=== PATIENT | female | born 1975 | race Caucasian/White ===

== ENCOUNTER 2017-06-09 21:48 | Emergency (ER) | payer OTHER ==
[~2017-06-09] VITALS: Ht 175.3 cm; Wt 92.6 kg
[~2017-06-09 21:48] MED LIST: ACETTAB3 OR; ACTIFED1 TAB PO; ADDERALL10 MG OR; ADDERALL10 MG PO; ADVIL200 MG OR; AMITRIPTYLIN25 MG PO; AMOXICILLIN/PO500 MG PO; AMOXICILLIN500 MG PO; ANTI-INFLAMMATORY PO; BENADRYL25 MG OR; BUTALBITAL/ACETAMIN1 PO; CIPRO500 MG OR; CLONAZEPAM1 MG PO; DARVOCET N-100100 - OR; DELESTROGEN40 MG/ML IM; DEPO-ESTRADIO5 MG/ML IM; DIPHEN/ATROP2.5 M1 PO; ELAVIL25 MG PO; ESTROGEN PATCH; FEMRING VA; FIORICET OR; FIORICET PO; FLEXERIL OR; FLEXERIL PO; HYDROCO/APAP1 TA9 PO; HYDROXYZ HCL25 MG PO; IMITREX25 MG PO; KLONOPIN1 MG OR; KLONOPIN1 MG PO; LORAZEPAM0.5 MG PO; LORTAB 10 OR; LORTAB 10 PO; LORTAB 1010 MG PO; LORTAB 5 OR; LORTAB 7.57.5 MG PO; LORTAB5 PO; MAXALT5 MG OR; MEDDOSEPAK PO; NAPROSYN500 MG PO; NAPROXEN375 MG OR; NEURONTIN100 MG PO; NORCO1 TAB PO; PENICILLN VK500 MG OR; PERCOCET 5/325M1 TAB OR; PERCOCET 5/325M1 TAB PO; PERCOCET1 TA2 OR; PREMARIN0.3 MG PO; PRILOSEC20 MG/CAP PO; PROMETHAZINE25 MG OR; PROMETHAZINE25 MG PO; RELPAX20 MG; ROBAXIN-750750 MG PO; SEROQUEL100 MG OR; TOPAMAX100 MG PO; TOPAMAX50 M1 OR; TRAMADOL HCL100 MG PO; TRAMADOL HCL50 MG PO; TRAZODONE100 MG OR; TRAZODONE150 MG OR; TRAZODONE150 MG PO; TRAZODONE50 MG PO; TYLENOL P1 OR; TYLENOL325 MG OR; ULTRAM50 M1 PO; ULTRAM50 MG OR; ULTRAM50 MG PO; ZOFRAN ODT4 MG PO; ZOLOFT100 MG; ZOLOFT100 MG OR; ZOLOFT100 MG PO; ZOLOFT50 MG PO; [UNRECOGNIZED DRUG - REMARK]
[2017-06-09 23:13] LABS: INFLUENZA A NONE DETECTED (NONE DETECT); INFLUENZA B NONE DETECTED (NONE DETECT)
[2017-06-09] MEDS ORDERED: CODEINE/GUAIFEN1 SOL PO (23:17)
[2017-06-09 23:30] VITALS: BP 125/82
== END 2017-06-09 23:40 | disposition home or self-care (01) | DRG 153 ==
LOC: ED 21:48
PROVIDERS: Emergency Medicine
DX: J32.9 Chronic sinusitis, unspecified (principal); F17.210 Nicotine dependence, cigarettes, uncomplicated; J40 Bronchitis, not specified as acute or chronic; R05 Cough; R07.81 Pleurodynia; M54.9 Dorsalgia, unspecified

== ENCOUNTER 2017-06-13 22:12 | Emergency (ER) | payer OTHER ==
[~2017-06-13 22:12] MED LIST changes: +CODEINE/GUAIFEN1 SOL PO
== END 2017-06-13 22:15 | disposition left against medical advice (07) | DRG 951 ==
LOC: ED 22:12 → LWOBS 22:15
DX: Z91.19 Patient's noncompliance with other medical treatment and regimen (principal)

== ENCOUNTER 2017-07-03 22:45 | Emergency (ER) | payer OTHER ==
[~2017-07-03] VITALS: Ht 175.3 cm; Wt 86.3 kg
[2017-07-03] MEDS ORDERED: XANAX1 MG PO (22:56)
[2017-07-03] MEDS ORDERED: LEVOTHYROXIN75 MC1 PO (22:56)
[2017-07-03] MEDS ORDERED: FIORICET PO (22:57)
[2017-07-03] MEDS ORDERED: SEROQUEL100 MG PO (22:57)
[2017-07-03] MEDS ORDERED: PROZAC10 MG PO (22:57)
[2017-07-03 23:49] VITALS: BP 127/86
== END 2017-07-03 23:59 | disposition home or self-care (01) | DRG 556 ==
LOC: ED 22:45
DX: M79.672 Pain in left foot (principal); E03.9 Hypothyroidism, unspecified; F17.210 Nicotine dependence, cigarettes, uncomplicated; W01.0XXA Fall on same level from slipping, tripping and stumbling without subsequent striking against object, initial encounter; Y92.009 Unspecified place in unspecified non-institutional (private) residence as the place of occurrence of the external cause

== ENCOUNTER 2019-03-29 13:23 | Emergency (ER) | payer OTHER ==
[~2019-03-29] VITALS: Ht 175.3 cm; Wt 100.0 kg
[~2019-03-29 13:23] MED LIST changes: +LEVOTHYROXIN75 MC1 PO; +PROZAC10 MG PO; +SEROQUEL100 MG PO; +XANAX1 MG PO
[2019-03-29 15:29] VITALS: BP 134/90
[2019-03-29] MEDS ORDERED: CEPHALEXIN500 M1 PO (15:36)
[2019-03-29 15:41] LABS: URINE BILIRUBIN - DIPSTICK NEGATIVE (NEGATIVE); URINE BLOOD DIPSTICK NEGATIVE (NEGATIVE); URINE COLOR YELLOW; URINE GLUCOSE - DIPSTICK NEGATIVE (NEGATIVE); URINE KETONE NEGATIVE (NEGATIVE); URINE LEUK ESTERASE NEGATIVE (NEGATIVE); URINE NITRITE - DIPSTICK NEGATIVE (Negative); URINE PROTEIN - DIPSTICK NEGATIVE (NEG-TRACE); URINE UROBILINOGEN - DIPSTICK 0.2 E.U./dL (0.2)
== END 2019-03-29 15:37 | disposition home or self-care (01) ==
LOC: ED 13:23
PROVIDERS: Family Medicine
DX: M54.5 Low back pain (principal); N39.0 Urinary tract infection, site not specified; E03.9 Hypothyroidism, unspecified; F17.210 Nicotine dependence, cigarettes, uncomplicated

== ENCOUNTER 2019-04-11 12:40 | Emergency (ER) | payer OTHER ==
[~2019-04-11] VITALS: Ht 175.3 cm; Wt 80.0 kg
[~2019-04-11 12:40] MED LIST changes: +CEPHALEXIN500 M1 PO
[2019-04-11] MEDS ORDERED: PREDNISONE50 MG PO (13:08)
[2019-04-11 14:15] VITALS: BP 142/75
== END 2019-04-11 14:18 | disposition home or self-care (01) ==
LOC: ED 12:40
DX: M54.5 Low back pain (principal); F17.200 Nicotine dependence, unspecified, uncomplicated

== ENCOUNTER 2019-06-13 | Emergency (ER) | payer OTHER ==
[~2019-06-13] MED LIST changes: +PREDNISONE50 MG PO
[2019-06-13 15:50] LABS: HEMATOCRIT 39.2 % (37.0-47.0); HEMOGLOBIN 12.8 g/dl (12.0-16.0); IMMATURE GRANULOCYTES 0.4 % (0.0-5.0); MEAN CELL VOLUME 98.7 fL CALC (80.0-100.0); MEAN CORPUSCULAR HGB 32.2 pG CALC (26.0-32.0); MEAN CORPUSCULAR HGB CONC 32.7 g/L CALC (32.0-36.0); NEUT# 5.61 thou/uL (2.00-7.15); RED BLOOD COUNT 3.97 mill/uL (4.20-5.60); RED CELL DISTRI WIDTH 13.2 % (11.5-15.5)
[2019-06-13 16:07] LABS: BUN 16 mg/dL (7-17); BUN/CREATININE RATIO 19 (12-20 (CALC)); CHLORIDE 102 mmol/l (95-108); CREATININE 0.8 mg/dL (0.5-1.0); GFR > 60 ML/MIN (>=60 (CALC)); GFR FOR AFR.AMER. > 60 ML/MIN (>=60 (CALC)); SODIUM 137 mmol/l (137-146)
[2019-06-13 16:13] LABS: ANION GAP 13 (6-22 (CALC)); CARBON DIOXIDE 26 mmol/l (22-30); POTASSIUM 3.7 mmol/l (3.5-5.1)
[2019-06-13] MEDS ORDERED: VOLTAREN1%GEL TOP (17:02)
[2019-06-13] MEDS ORDERED: CODEINE/GUAIFEN1 SOL PO (17:29)
== END 2019-06-13 17:17 | disposition home or self-care (01) ==
PROVIDERS: Family Medicine
DX: R07.89 Other chest pain (principal); F17.200 Nicotine dependence, unspecified, uncomplicated; E03.9 Hypothyroidism, unspecified

== ENCOUNTER 2019-06-18 | Emergency (ER) | payer OTHER ==
[~2019-06-18] MED LIST changes: +VOLTAREN1%GEL TOP
== END 2019-06-18 17:07 | disposition home or self-care (01) ==
DX: J10.1 Influenza due to other identified influenza virus with other respiratory manifestations (principal); E03.9 Hypothyroidism, unspecified; F17.210 Nicotine dependence, cigarettes, uncomplicated

== ENCOUNTER 2020-12-07 23:46 | Emergency (ER) | payer OTHER ==
[~2020-12-07] VITALS: Ht 175.3 cm; Wt 90.0 kg
[2020-12-08] MEDS ORDERED: AIMOVIG70 MG/ML IM (00:48)
[2020-12-08] MEDS ORDERED: INHALER (00:49)
[2020-12-08] MEDS ORDERED: MAXALT10 MG PO (00:49)
[2020-12-08] MEDS ORDERED: HYDROCO/APAP1 TA9 PO (01:47)
[2020-12-08] MEDS ORDERED: FLEXERIL5 M1 PO (01:47)
[2020-12-08 02:10] VITALS: BP 125/86
== END 2020-12-08 02:21 | disposition home or self-care (01) | DRG 552 ==
LOC: ED 23:46
DX: S16.1XXA Strain of muscle, fascia and tendon at neck level, initial encounter (principal); S39.012A Strain of muscle, fascia and tendon of lower back, initial encounter; M47.816 Spondylosis without myelopathy or radiculopathy, lumbar region; E03.9 Hypothyroidism, unspecified; F17.200 Nicotine dependence, unspecified, uncomplicated; V43.63XA Car passenger injured in collision with pick-up truck in traffic accident, initial encounter

== ENCOUNTER 2020-12-24 22:43 | Emergency (ER) | payer BC ==
[~2020-12-24] VITALS: Ht 175.3 cm; Wt 104.5 kg
[~2020-12-24 22:43] MED LIST changes: +AIMOVIG70 MG/ML IM; +FLEXERIL5 M1 PO; +INHALER; +MAXALT10 MG PO
[2020-12-25 00:08] LABS: HEMATOCRIT 39.4 % (37.0-47.0); HEMOGLOBIN 12.9 g/dl (12.0-16.0); IMMATURE GRANULOCYTES 0.1 % (0.0-5.0); MEAN CELL VOLUME 99.5 fL CALC (80.0-100.0); MEAN CORPUSCULAR HGB 32.6 pG CALC (26.0-32.0); MEAN CORPUSCULAR HGB CONC 32.7 g/dL CAL (32.0-36.0); NEUT# 5.28 thou/uL (2.00-7.15); RED BLOOD COUNT 3.96 mill/uL (4.20-5.60); RED CELL DISTRI WIDTH 13.6 % (11.5-15.5)
[2020-12-25 00:26] LABS: ALBUMIN 4.6 g/dL (3.2-5.0); ALKALINE PHOSPHATASE 77 u/l (38-126); ANION GAP 14 (6-22 (CALC)); BILIRUBIN, TOTAL 0.3 mg/dL (0.0-1.4); BUN 15 mg/dL (7-17); BUN/CREATININE RATIO 16 (12-20 (CALC)); CARBON DIOXIDE 25 mmol/l (22-30); CHLORIDE 101 mmol/l (95-108); CREATININE 0.9 mg/dL (0.5-1.0); GFR > 60 ML/MIN (>=60 (CALC)); GFR FOR AFR.AMER. > 60 ML/MIN (>=60 (CALC)); MAGNESIUM 2.1 mg/dL (1.6-2.3); SGOT/AST 43 u/l (14-36); SODIUM 136 mmol/l (137-146); TOTAL PROTEIN 8.1 g/dL (6.3-8.2)
[2020-12-25 00:28] LABS: D-DIMER 0.74 mg/L (0.19-0.60)
[2020-12-25 00:33] LABS: ACT PARTIAL THROMBO TIME 23.4 SECONDS (20.0-32.5); INTERNATIONAL NORMALIZED RATIO 0.9 RATIO (0.7-1.3); PROTHROMBIN TIME 9.8 SECONDS (9.0-12.5)
[2020-12-25 00:38] LABS: MYOGLOBIN 36 ng/mL (0 - 62)
[2020-12-25] MEDS ORDERED: BACLOFEN10 MG PO (01:33)
[2020-12-25] MEDS ORDERED: ALPRAZOLAM PO (01:34)
[2020-12-25 02:44] VITALS: BP 118/62
== END 2020-12-25 02:48 | disposition home or self-care (01) | DRG 153 ==
LOC: ED 22:43
PROVIDERS: Family Medicine
DX: J31.0 Chronic rhinitis (principal); R07.89 Other chest pain; E11.9 Type 2 diabetes mellitus without complications; E03.9 Hypothyroidism, unspecified; F17.210 Nicotine dependence, cigarettes, uncomplicated; I87.2 Venous insufficiency (chronic) (peripheral); Z20.822 Contact with and (suspected) exposure to COVID-19

== ENCOUNTER 2021-04-08 11:37 | Emergency (ER) | payer BC ==
[~2021-04-08] VITALS: Ht 175.3 cm; Wt 89.0 kg
[~2021-04-08 11:37] MED LIST changes: +ALPRAZOLAM PO; +BACLOFEN10 MG PO
[2021-04-08 13:38] VITALS: BP 173/79
== END 2021-04-08 13:38 | disposition home or self-care (01) | DRG 605 ==
LOC: ED 11:37
DX: S90.32XA Contusion of left foot, initial encounter (principal); E11.9 Type 2 diabetes mellitus without complications; E03.9 Hypothyroidism, unspecified; F17.200 Nicotine dependence, unspecified, uncomplicated; X50.0XXA Overexertion from strenuous movement or load, initial encounter; Y92.009 Unspecified place in unspecified non-institutional (private) residence as the place of occurrence of the external cause

== ENCOUNTER 2022-02-03 14:31 | Emergency (ER) | payer SELFPAY ==
[~2022-02-03] VITALS: Ht 175.3 cm; Wt 100.0 kg
[2022-02-03] VITALS (12 sets, daily range): BP systolic 65–142; BP diastolic 42–104
[2022-02-03 15:48] LABS: HEMATOCRIT 39.9 % (37.0-47.0); IMMATURE GRANULOCYTES 0.2 % (0.0-5.0); MEAN CELL VOLUME 103.1 fL CALC (80.0-100.0); MEAN CORPUSCULAR HGB 33.6 pG CALC (26.0-32.0); MEAN CORPUSCULAR HGB CONC 32.6 g/dL CAL (32.0-36.0); NEUT# 5.44 thou/uL (2.00-7.15); RED BLOOD COUNT 3.87 mill/uL (4.20-5.60); RED CELL DISTRI WIDTH 13.4 % (11.5-15.5)
[2022-02-03 16:05] LABS: ALBUMIN 5.1 g/dL (3.2-5.0); ALKALINE PHOSPHATASE 88 u/l (38-126); ANION GAP 15 (6-22 (CALC)); BILIRUBIN, TOTAL 0.3 mg/dL (0.0-1.4); BUN 19 mg/dL (7-17); BUN/CREATININE RATIO 20 (12-20 (CALC)); CARBON DIOXIDE 26 mmol/l (22-30); CHLORIDE 105 mmol/l (95-108); GFR FOR AFR.AMER. > 60 ML/MIN (>=60 (CALC)); GFR OTHER RACES 59 ML/MIN (>=60 (CALC)); LIPASE 137 u/l (23-300); POTASSIUM 4.3 mmol/l (3.5-5.1); SGOT/AST 31 u/l (14-36); SODIUM 142 mmol/l (137-146); TOTAL PROTEIN 8.8 g/dL (6.3-8.2)
[2022-02-03 16:09] LABS: INTERNATIONAL NORMALIZED RATIO 0.9 RATIO (0.7-1.3); PROTHROMBIN TIME 9.3 SECONDS (9.0-12.5)
[2022-02-03 16:17] LABS: MYOGLOBIN 31 ng/mL (0 - 62)
[2022-02-03] MEDS ORDERED: ZITHROMAX Z-PA250 MG PO (19:01)
== END 2022-02-03 19:25 | disposition left against medical advice (07) | DRG 313 ==
LOC: ED 14:31 → ED-I 16:49 → ED 19:25
PROVIDERS: Nurse Practitioner
DX: R07.9 Chest pain, unspecified (principal); J18.9 Pneumonia, unspecified organism; R60.9 Edema, unspecified; E11.9 Type 2 diabetes mellitus without complications; E03.9 Hypothyroidism, unspecified; Z91.19 Patient's noncompliance with other medical treatment and regimen
CPT/HCPCS: Q9967

== ENCOUNTER 2022-02-25 10:42 | Observation (INO) | payer SELFPAY ==
[~2022-02-25] VITALS: Ht 175.3 cm; Wt 91.0 kg
[~2022-02-25 10:42] MED LIST changes: +ZITHROMAX Z-PA250 MG PO
[2022-02-25 11:21] LABS: HEMATOCRIT 41.9 % (37.0-47.0); HEMOGLOBIN 14.3 g/dl (12.0-16.0); IMMATURE GRANULOCYTES 0.4 % (0.0-5.0); MEAN CELL VOLUME 99.1 fL CALC (80.0-100.0); MEAN CORPUSCULAR HGB 33.8 pG CALC (26.0-32.0); MEAN CORPUSCULAR HGB CONC 34.1 g/dL CAL (32.0-36.0); NEUT# 6.78 thou/uL (2.00-7.15); RED BLOOD COUNT 4.23 mill/uL (4.20-5.60); RED CELL DISTRI WIDTH 13.1 % (11.5-15.5)
[2022-02-25 11:49] LABS: INTERNATIONAL NORMALIZED RATIO 0.9 RATIO (0.7-1.3); PROTHROMBIN TIME 9.2 SECONDS (9.0-12.5)
[2022-02-25 11:54] LABS: ALBUMIN 4.9 g/dL (3.2-5.0); ALKALINE PHOSPHATASE 71 u/l (38-126); BUN 16 mg/dL (7-17); BUN/CREATININE RATIO 16 (12-20 (CALC)); CARBON DIOXIDE 26 mmol/l (22-30); CHLORIDE 98 mmol/l (95-108); GFR FOR AFR.AMER. > 60 ML/MIN (>=60 (CALC)); GFR OTHER RACES 59 ML/MIN (>=60 (CALC)); SGOT/AST 34 u/l (14-36); SODIUM 136 mmol/l (137-146)
[2022-02-25 11:57] LABS: ANION GAP 17 (6-22 (CALC)); POTASSIUM 4.9 mmol/l (3.5-5.1)
[2022-02-25 12:06] LABS: BILIRUBIN, TOTAL 0.6 mg/dL (0.0-1.4)
[2022-02-25] MEDS ORDERED: GABAPENTIN100 MG PO (12:35)
[2022-02-25] MEDS ORDERED: HYDROXYZ HCL25 MG PO (12:35)
[2022-02-25] MEDS ORDERED: LEVOTHYROXIN75 MCG PO (12:35)
[2022-02-25] MEDS ORDERED: CYMBALTA60 MG PO (12:36)
[2022-02-25] MEDS ORDERED: LASIX 20 MG TAB20 MG PO (12:36)
[2022-02-25] MEDS ORDERED: XANAX1 MG PO (12:36)
[2022-02-25] MEDS ORDERED: MAXALT10 MG PO (12:37)
[2022-02-25] MEDS ORDERED: POTASSIUM CHLO20 ME1 PO (12:37)
[2022-02-25 14:59] LABS: URINE BILIRUBIN - DIPSTICK NEGATIVE (NEGATIVE); URINE BLOOD DIPSTICK NEGATIVE (NEGATIVE); URINE COLOR YELLOW; URINE GLUCOSE - DIPSTICK NEGATIVE (NEGATIVE); URINE KETONE NEGATIVE (NEGATIVE); URINE LEUK ESTERASE NEGATIVE (NEGATIVE); URINE PROTEIN - DIPSTICK NEGATIVE (NEG-TRACE); URINE SPECIFIC GRAVITY <=1.005; URINE UROBILINOGEN - DIPSTICK 0.2 E.U./dL (0.2)
[2022-02-25 15:01] LABS: URINE NITRITE - DIPSTICK NEGATIVE (Negative)
[2022-02-25 15:50] VITALS: BP 116/71
[2022-02-25 16:00] VITALS: BP 116/71
[2022-02-25 19:15] VITALS: BP 107/66
[2022-02-25 20:00] VITALS: BP 107/66
[2022-02-25 23:49] VITALS: BP 107/63
[2022-02-26 04:00] VITALS: BP 103/61
[2022-02-26 04:28] VITALS: BP 103/61
[2022-02-26 07:09] VITALS: BP 116/77
[2022-02-26] MEDS ORDERED: METAXALONE800 M1 PO (10:40)
[2022-02-26] MEDS ORDERED: FIORICET 50-3001 CAP PO (11:53)
== END 2022-02-26 13:10 | disposition home or self-care (01) | DRG 103 ==
LOC: ED 10:42 → ED-I 12:50 → ED 13:11 → MS2 13:12
PROVIDERS: Family Medicine; ADMIT Internal Medicine; ATTEND Internal Medicine
DX: G43.909 Migraine, unspecified, not intractable, without status migrainosus (principal); R20.0 Anesthesia of skin; E11.9 Type 2 diabetes mellitus without complications; E03.9 Hypothyroidism, unspecified; J44.9 Chronic obstructive pulmonary disease, unspecified; F17.200 Nicotine dependence, unspecified, uncomplicated; E66.9 Obesity, unspecified; Z68.29 Body mass index [BMI] 29.0-29.9, adult; F40.240 Claustrophobia; Z20.822 Contact with and (suspected) exposure to COVID-19
CPT/HCPCS: G0378; Q3014; Q9967

== ENCOUNTER 2022-03-18 11:39 | Emergency (ER) | payer SELFPAY ==
[~2022-03-18] VITALS: Ht 175.3 cm; Wt 95.7 kg
[~2022-03-18 11:39] MED LIST changes: +CYMBALTA60 MG PO; +FIORICET 50-3001 CAP PO; +GABAPENTIN100 MG PO; +LASIX 20 MG TAB20 MG PO; +LEVOTHYROXIN75 MCG PO; +METAXALONE800 M1 PO; +POTASSIUM CHLO20 ME1 PO
[2022-03-18 11:46] VITALS: BP 143/75
[2022-03-18 12:01] VITALS: BP 120/83
[2022-03-18] MEDS ORDERED: HYDROCO/APAP1 TA9 PO (12:02)
[2022-03-18] MEDS ORDERED: ZOFRAN4 MG/TAB PO (12:02)
[2022-03-18] MEDS ORDERED: AMOX/K CLAV875 M1 PO (12:02)
[2022-03-18 12:11] VITALS: BP 143/75
== END 2022-03-18 12:21 | disposition home or self-care (01) | DRG 159 ==
LOC: ED 11:39
DX: K03.81 Cracked tooth (principal); E11.9 Type 2 diabetes mellitus without complications; E03.9 Hypothyroidism, unspecified; F17.200 Nicotine dependence, unspecified, uncomplicated

== ENCOUNTER 2022-04-04 13:28 | Emergency (ER) | payer SELFPAY ==
[~2022-04-04] VITALS: Ht 175.3 cm; Wt 91.0 kg
[~2022-04-04 13:28] MED LIST changes: +AMOX/K CLAV875 M1 PO; +ZOFRAN4 MG/TAB PO
[2022-04-04 13:51] VITALS: BP 126/69
[2022-04-04 14:00] VITALS: BP 104/58
[2022-04-04 14:30] VITALS: BP 107/64
[2022-04-04 15:01] VITALS: BP 111/66
[2022-04-04] MEDS ORDERED: HYDROCO/APAP1 TA9 PO (15:20)
[2022-04-04] MEDS ORDERED: VOLTAREN1%GEL TOP (15:29)
[2022-04-04 15:30] VITALS: BP 103/65
[2022-04-04 15:42] VITALS: BP 103/65
== END 2022-04-04 15:56 | disposition home or self-care (01) | DRG 556 ==
LOC: ED 13:28
DX: M25.561 Pain in right knee (principal); M25.571 Pain in right ankle and joints of right foot; W01.0XXA Fall on same level from slipping, tripping and stumbling without subsequent striking against object, initial encounter; Y92.009 Unspecified place in unspecified non-institutional (private) residence as the place of occurrence of the external cause

== ENCOUNTER 2022-05-07 22:45 | Emergency (ER) | payer SELFPAY ==
[~2022-05-07] VITALS: Ht 175.3 cm; Wt 90.0 kg
[2022-05-07] MEDS ORDERED: ATORVASTATIN CA20 MG PO (23:25)
[2022-05-07 23:54] LABS: URINE BILIRUBIN - DIPSTICK NEGATIVE (NEGATIVE); URINE BLOOD DIPSTICK NEGATIVE (NEGATIVE); URINE COLOR YELLOW; URINE GLUCOSE - DIPSTICK NEGATIVE (NEGATIVE); URINE KETONE NEGATIVE (NEGATIVE); URINE LEUK ESTERASE NEGATIVE (NEGATIVE); URINE PROTEIN - DIPSTICK NEGATIVE (NEG-TRACE); URINE SPECIFIC GRAVITY 1.015; URINE UROBILINOGEN - DIPSTICK 0.2 E.U./dL (0.2)
[2022-05-07 23:57] LABS: URINE NITRITE - DIPSTICK NEGATIVE (Negative)
[2022-05-08] MEDS ORDERED: LORTAB 5/3255 MG PO (02:06)
[2022-05-08] MEDS ORDERED: CYCLOBENZAPRINE10 MG PO (02:06)
[2022-05-08 02:16] VITALS: BP 118/78
== END 2022-05-08 02:16 | disposition home or self-care (01) | DRG 552 ==
LOC: ED 22:45
PROVIDERS: Emergency Medicine
DX: M54.50 Low back pain, unspecified (principal); G89.29 Other chronic pain

== ENCOUNTER 2022-10-26 04:26 | Emergency (ER) | payer SELFPAY ==
[~2022-10-26] VITALS: Ht 175.3 cm; Wt 95.0 kg
[~2022-10-26 04:26] MED LIST changes: +ATORVASTATIN CA20 MG PO; +CYCLOBENZAPRINE10 MG PO; +LORTAB 5/3255 MG PO
[2022-10-26] MEDS ORDERED: LORTAB 1010 MG PO (06:38)
[2022-10-26 07:00] VITALS: BP 148/89
== END 2022-10-26 07:00 | disposition home or self-care (01) | DRG 605 ==
LOC: ED 04:26
DX: S20.211A Contusion of right front wall of thorax, initial encounter (principal); E11.9 Type 2 diabetes mellitus without complications; E03.9 Hypothyroidism, unspecified; F17.200 Nicotine dependence, unspecified, uncomplicated; W01.0XXA Fall on same level from slipping, tripping and stumbling without subsequent striking against object, initial encounter; Y92.009 Unspecified place in unspecified non-institutional (private) residence as the place of occurrence of the external cause

== ENCOUNTER 2022-11-01 14:44 | Emergency (ER) | payer SELFPAY ==
[~2022-11-01] VITALS: Ht 175.3 cm; Wt 90.7 kg
[2022-11-01] MEDS ORDERED: LEVAQUIN750 M1 PO (16:56)
[2022-11-01 17:02] VITALS: BP 132/90
== END 2022-11-01 17:10 | disposition home or self-care (01) | DRG 103 ==
LOC: ED 14:44
DX: G43.909 Migraine, unspecified, not intractable, without status migrainosus (principal); J32.9 Chronic sinusitis, unspecified; E11.9 Type 2 diabetes mellitus without complications; E03.9 Hypothyroidism, unspecified; F17.200 Nicotine dependence, unspecified, uncomplicated

== ENCOUNTER 2022-11-04 15:09 | Emergency (ER) | payer SELFPAY ==
[2022-11-04] VITALS (7 sets, daily range): BP systolic 100–119; BP diastolic 59–75
[~2022-11-04] VITALS: Ht 175.3 cm; Wt 90.0 kg
[~2022-11-04 15:09] MED LIST changes: +LEVAQUIN750 M1 PO
== END 2022-11-04 17:00 | disposition home or self-care (01) | DRG 204 ==
LOC: ED 15:09
DX: R07.81 Pleurodynia (principal); E11.9 Type 2 diabetes mellitus without complications; E03.9 Hypothyroidism, unspecified; F17.200 Nicotine dependence, unspecified, uncomplicated

== ENCOUNTER 2022-11-17 18:02 | Inpatient (IN) | payer SELFPAY ==
[~2022-11-17] VITALS: Ht 170.2 cm; Wt 92.0 kg
[2022-11-17] VITALS (11 sets, daily range): BP systolic 115–189; BP diastolic 71–120
[2022-11-17 18:16] LABS: BASO% 0.1 % (0-3); EOS% 0.1 % (0-8); HEMATOCRIT 41.4 % (37.0-47.0); HEMOGLOBIN 13.7 g/dl (12.0-16.0); IMMATURE GRANULOCYTES 0.4 % (0.0-5.0); LYMPH% 12.8 % (15-41); MEAN CELL VOLUME 95.2 fL CALC (80.0-100.0); MEAN CORPUSCULAR HGB 31.5 pG CALC (26.0-32.0); MEAN CORPUSCULAR HGB CONC 33.1 g/dL CAL (32.0-36.0); MONO% 6.8 % (2-13); NEUT# 11.45 thou/uL (2.00-7.15); NEUT% 79.8 % (42-76); RED BLOOD COUNT 4.35 mill/uL (4.20-5.60)
[2022-11-17 18:33] LABS: ALKALINE PHOSPHATASE 94 u/l (38-126); BUN 31 mg/dL (7-17); BUN/CREATININE RATIO 41 (12-20 (CALC)); CHLORIDE 101 mmol/l (95-108); CREATININE 0.8 mg/dL (0.5-1.0); GFR FOR AFR.AMER. > 60 ML/MIN (>=60 (CALC)); GFR OTHER RACES > 60 ML/MIN (>=60 (CALC)); POTASSIUM 4.2 mmol/l (3.5-5.1); SGOT/AST 39 u/l (14-36); SODIUM 140 mmol/l (137-146)
[2022-11-17 18:34] LABS: PROTHROMBIN TIME 9.9 SECONDS (9.0-12.5)
[2022-11-17 18:41] LABS: ALBUMIN 5.1 g/dL (3.2-5.0); ANION GAP 19 (6-22 (CALC)); BILIRUBIN, TOTAL 0.5 mg/dL (0.02-1.3); CARBON DIOXIDE 24 mmol/l (22-30)
[2022-11-17 19:21] LABS: URINE BLOOD DIPSTICK SMALL (NEGATIVE); URINE GLUCOSE - DIPSTICK NEGATIVE (NEGATIVE); URINE KETONE 15 mg/dL (NEGATIVE); URINE LEUK ESTERASE NEGATIVE (NEGATIVE); URINE PH 5.5 (4.5-8.0); URINE PROTEIN - DIPSTICK >=300 mg/dL (NEG-TRACE); URINE SPECIFIC GRAVITY >=1.030; URINE UROBILINOGEN - DIPSTICK 0.2 E.U./dL (0.2)
[2022-11-17 19:23] LABS: URINE NITRITE - DIPSTICK NEGATIVE (Negative)
[2022-11-17 19:24] LABS: URINE COLOR DK. YELLOW
[2022-11-17 19:30] LABS: URINE SQUAMOUS EPITHELIAL CELL MANY EPI/hpf (0-FEW)
[2022-11-17 21:01] LABS: TSH, 3RD GENERATION 4.39 uIU/mL (0.47 - 4.68)
[2022-11-18 00:06] VITALS: BP 156/72
[2022-11-18 04:06] VITALS: BP 150/85
[2022-11-18 06:30] LABS: BASO% 0.3 % (0-3); HEMATOCRIT 44.2 % (37.0-47.0); HEMOGLOBIN 14.2 g/dl (12.0-16.0); IMMATURE GRANULOCYTES 1.1 % (0.0-5.0); LYMPH% 9.7 % (15-41); MEAN CELL VOLUME 98.4 fL CALC (80.0-100.0); MEAN CORPUSCULAR HGB 31.6 pG CALC (26.0-32.0); MEAN CORPUSCULAR HGB CONC 32.1 g/dL CAL (32.0-36.0); MONO% 5.6 % (2-13); NEUT# 11.96 thou/uL (2.00-7.15); NEUT% 83.3 % (42-76); RED BLOOD COUNT 4.49 mill/uL (4.20-5.60); RED CELL DISTRI WIDTH 14.1 % (11.5-15.5)
[2022-11-18 06:52] VITALS: BP 157/77
[2022-11-18 07:07] LABS: ALBUMIN 5.2 g/dL (3.2-5.0); ALKALINE PHOSPHATASE 77 u/l (38-126); ANION GAP 16 (6-22 (CALC)); BILIRUBIN, TOTAL 0.6 mg/dL (0.02-1.3); BUN 35 mg/dL (7-17); BUN/CREATININE RATIO 51 (12-20 (CALC)); CALCULATED LDLCHOLESTEROL 136 mg/dL (62-129 (CALC)); CARBON DIOXIDE 28 mmol/l (22-30); CHLORIDE 102 mmol/l (95-108); CREATININE 0.7 mg/dL (0.5-1.0); GFR FOR AFR.AMER. > 60 ML/MIN (>=60 (CALC)); GFR OTHER RACES > 60 ML/MIN (>=60 (CALC)); HDL CHOLESTEROL 46 mg/dL (39.0-59.0); POTASSIUM 4.5 mmol/l (3.5-5.1); SGOT/AST 42 u/l (14-36); SODIUM 142 mmol/l (137-146); TOTAL CHOLESTEROL 229 mg/dl (0-199); TOTAL TRIGLYCERIDES 238 mg/dl (0-149); VLDL CHOLESTROL 48 mg/dl (1-41 (CALC))
[2022-11-18 07:08] LABS: MAGNESIUM 2.8 mg/dL (1.6-2.3)
[2022-11-18 11:15] VITALS: BP 162/94
[2022-11-18 18:25] VITALS: BP 141/72
[2022-11-18 19:30] VITALS: BP 141/72
[2022-11-19 04:00] VITALS: BP 141/72
[2022-11-19 05:13] LABS: HEMATOCRIT 40.8 % (37.0-47.0); HEMOGLOBIN 12.7 g/dl (12.0-16.0); MEAN CORPUSCULAR HGB 32.1 pG CALC (26.0-32.0); MEAN CORPUSCULAR HGB CONC 31.1 g/dL CAL (32.0-36.0); RED BLOOD COUNT 3.96 mill/uL (4.20-5.60); RED CELL DISTRI WIDTH 14.2 % (11.5-15.5)
[2022-11-19 06:02] LABS: ALBUMIN 4.4 g/dL (3.2-5.0); ALKALINE PHOSPHATASE 78 u/l (38-126); BILIRUBIN, TOTAL 0.5 mg/dL (0.02-1.3); BUN 27 mg/dL (7-17); BUN/CREATININE RATIO 39 (12-20 (CALC)); CHLORIDE 105 mmol/l (95-108); CREATININE 0.7 mg/dL (0.5-1.0); GFR FOR AFR.AMER. > 60 ML/MIN (>=60 (CALC)); GFR OTHER RACES > 60 ML/MIN (>=60 (CALC)); MAGNESIUM 2.4 mg/dL (1.6-2.3); POTASSIUM 3.7 mmol/l (3.5-5.1); SGOT/AST 40 u/l (14-36); SODIUM 137 mmol/l (137-146)
[2022-11-19 06:04] LABS: ANION GAP 14 (6-22 (CALC)); CARBON DIOXIDE 22 mmol/l (22-30); TOTAL PROTEIN 7.1 g/dL (6.3-8.2)
[2022-11-19 07:00] VITALS: BP 138/84
[2022-11-19 18:55] VITALS: BP 170/80
[2022-11-19 19:00] VITALS: BP 170/80
[2022-11-20] VITALS (8 sets, daily range): BP systolic 154–179; BP diastolic 79–97
[2022-11-20 06:05] LABS: BASO% 0.5 % (0-3); EOS% 0.1 % (0-8); HEMATOCRIT 40.7 % (37.0-47.0); HEMOGLOBIN 13.4 g/dl (12.0-16.0); IMMATURE GRANULOCYTES 0.9 % (0.0-5.0); LYMPH% 22.1 % (15-41); MEAN CORPUSCULAR HGB 31.8 pG CALC (26.0-32.0); MEAN CORPUSCULAR HGB CONC 32.9 g/dL CAL (32.0-36.0); NEUT# 7.37 thou/uL (2.00-7.15); NEUT% 70.4 % (42-76); RED BLOOD COUNT 4.22 mill/uL (4.20-5.60); RED CELL DISTRI WIDTH 13.4 % (11.5-15.5)
[2022-11-20 06:11] LABS: ALBUMIN 4.4 g/dL (3.2-5.0); ALKALINE PHOSPHATASE 74 u/l (38-126); ANION GAP 16 (6-22 (CALC)); BILIRUBIN, TOTAL 0.6 mg/dL (0.02-1.3); BUN 23 mg/dL (7-17); BUN/CREATININE RATIO 37 (12-20 (CALC)); CARBON DIOXIDE 22 mmol/l (22-30); CHLORIDE 105 mmol/l (95-108); CREATININE 0.6 mg/dL (0.5-1.0); GFR FOR AFR.AMER. > 60 ML/MIN (>=60 (CALC)); GFR OTHER RACES > 60 ML/MIN (>=60 (CALC)); POTASSIUM 4.2 mmol/l (3.5-5.1); SGOT/AST 38 u/l (14-36); SODIUM 139 mmol/l (137-146); TOTAL PROTEIN 7.3 g/dL (6.3-8.2)
[2022-11-20 06:17] LABS: MEAN CELL VOLUME 96.4 fL CALC (80.0-100.0)
[2022-11-21] VITALS (7 sets, daily range): BP systolic 130–190; BP diastolic 83–95
[2022-11-21 05:25] LABS: BASO% 0.4 % (0-3); EOS% 0.2 % (0-8); HEMATOCRIT 41.9 % (37.0-47.0); HEMOGLOBIN 13.8 g/dl (12.0-16.0); IMMATURE GRANULOCYTES 0.6 % (0.0-5.0); LYMPH% 19.6 % (15-41); MEAN CELL VOLUME 95.7 fL CALC (80.0-100.0); MEAN CORPUSCULAR HGB 31.5 pG CALC (26.0-32.0); MEAN CORPUSCULAR HGB CONC 32.9 g/dL CAL (32.0-36.0); MONO% 6.1 % (2-13); NEUT# 9.57 thou/uL (2.00-7.15); NEUT% 73.1 % (42-76); RED BLOOD COUNT 4.38 mill/uL (4.20-5.60); RED CELL DISTRI WIDTH 13.1 % (11.5-15.5)
[2022-11-21 05:50] LABS: ALBUMIN 4.4 g/dL (3.2-5.0); ALKALINE PHOSPHATASE 77 u/l (38-126); ANION GAP 13 (6-22 (CALC)); BILIRUBIN, TOTAL 0.5 mg/dL (0.02-1.3); BUN 17 mg/dL (7-17); BUN/CREATININE RATIO 29 (12-20 (CALC)); CARBON DIOXIDE 23 mmol/l (22-30); CHLORIDE 107 mmol/l (95-108); CREATININE 0.6 mg/dL (0.5-1.0); GFR FOR AFR.AMER. > 60 ML/MIN (>=60 (CALC)); GFR OTHER RACES > 60 ML/MIN (>=60 (CALC)); POTASSIUM 3.5 mmol/l (3.5-5.1); SGOT/AST 34 u/l (14-36); SODIUM 139 mmol/l (137-146); TOTAL PROTEIN 7.2 g/dL (6.3-8.2)
== END 2022-11-21 15:35 | disposition short-term general hospital (02) | DRG 71 ==
LOC: ED 18:02 → MS2 20:23
PROVIDERS: Emergency Medicine; Internal Medicine; Nurse Practitioner; Nurse Practitioner Family; ADMIT Internal Medicine; ATTEND Internal Medicine
PROC: 009U3ZX Drainage of Spinal Canal, Percutaneous Approach, Diagnostic (ICD-10-PCS; principal; 2022-11-18)
PROC: B01BZZZ Fluoroscopy of Spinal Cord (ICD-10-PCS; 2022-11-18)
DX: G93.40 Encephalopathy, unspecified (principal); R44.3 Hallucinations, unspecified; E11.9 Type 2 diabetes mellitus without complications; E03.9 Hypothyroidism, unspecified; F41.9 Anxiety disorder, unspecified; F31.9 Bipolar disorder, unspecified; F12.10 Cannabis abuse, uncomplicated; E78.5 Hyperlipidemia, unspecified; I25.10 Atherosclerotic heart disease of native coronary artery without angina pectoris; M54.9 Dorsalgia, unspecified; G89.29 Other chronic pain; F17.200 Nicotine dependence, unspecified, uncomplicated; Z20.822 Contact with and (suspected) exposure to COVID-19
CPT/HCPCS: J1650; J2060; J3420

== ENCOUNTER 2022-11-26 10:40 | Emergency (ER) | payer SELFPAY ==
[2022-11-26] VITALS (7 sets, daily range): BP systolic 97–114; BP diastolic 59–81
[~2022-11-26] VITALS: Ht 170.2 cm; Wt 90.7 kg
== END 2022-11-26 13:24 | disposition home or self-care (01) | DRG 552 ==
LOC: ED 10:40
DX: M54.50 Low back pain, unspecified (principal); E11.42 Type 2 diabetes mellitus with diabetic polyneuropathy; E03.9 Hypothyroidism, unspecified; F17.200 Nicotine dependence, unspecified, uncomplicated

== ENCOUNTER 2022-11-30 15:11 | Emergency (ER) | payer SELFPAY ==
[~2022-11-30] VITALS: Ht 170.2 cm; Wt 91.0 kg
[2022-11-30 15:17] VITALS: BP 131/79
[2022-11-30 15:31] VITALS: BP 120/91
[2022-11-30 16:31] VITALS: BP 102/66
[2022-11-30] MEDS ORDERED: METHOCARBAMOL500 MG PO (16:43)
[2022-11-30] MEDS ORDERED: NAPROXEN500 MG PO (16:43)
[2022-11-30 16:55] VITALS: BP 102/66
== END 2022-11-30 17:05 | disposition home or self-care (01) | DRG 552 ==
LOC: ED 15:11
DX: M53.3 Sacrococcygeal disorders, not elsewhere classified (principal); G43.909 Migraine, unspecified, not intractable, without status migrainosus; E11.9 Type 2 diabetes mellitus without complications; E03.9 Hypothyroidism, unspecified; F17.210 Nicotine dependence, cigarettes, uncomplicated

== ENCOUNTER 2022-12-16 16:27 | Emergency (ER) | payer SELFPAY ==
[~2022-12-16] VITALS: Ht 170.2 cm; Wt 91.0 kg
[~2022-12-16 16:27] MED LIST changes: +METHOCARBAMOL500 MG PO; +NAPROXEN500 MG PO
[2022-12-16 16:52] LABS: BASO% 0.4 % (0-3); EOS% 1.3 % (0-8); HEMATOCRIT 43.4 % (37.0-47.0); HEMOGLOBIN 13.7 g/dl (12.0-16.0); IMMATURE GRANULOCYTES 0.1 % (0.0-5.0); LYMPH% 24.8 % (15-41); MEAN CELL VOLUME 99.8 fL CALC (80.0-100.0); MEAN CORPUSCULAR HGB 31.5 pG CALC (26.0-32.0); MEAN CORPUSCULAR HGB CONC 31.6 g/dL CAL (32.0-36.0); MONO% 6.1 % (2-13); NEUT# 5.1 thou/uL (2.00-7.15); NEUT% 67.3 % (42-76); RED BLOOD COUNT 4.35 mill/uL (4.20-5.60); RED CELL DISTRI WIDTH 13.3 % (11.5-15.5)
[2022-12-16 17:02] LABS: ALBUMIN 4.1 g/dL (3.2-5.0); ALKALINE PHOSPHATASE 111 u/l (38-126); ANION GAP 12 (6-22 (CALC)); BILIRUBIN, TOTAL 0.3 mg/dL (0.02-1.3); BUN 18 mg/dL (7-17); BUN/CREATININE RATIO 17 (12-20 (CALC)); CARBON DIOXIDE 29 mmol/l (22-30); CHLORIDE 103 mmol/l (95-108); GFR FOR AFR.AMER. > 60 ML/MIN (>=60 (CALC)); GFR OTHER RACES 59 ML/MIN (>=60 (CALC)); POTASSIUM 4.2 mmol/l (3.5-5.1); SGOT/AST 28 u/l (14-36); SODIUM 140 mmol/l (137-146); TOTAL PROTEIN 7.4 g/dL (6.3-8.2)
[2022-12-16 19:30] VITALS: BP 114/72
[2022-12-16 19:45] VITALS: BP 134/90
[2022-12-16 20:01] VITALS: BP 112/69
[2022-12-16] MEDS ORDERED: LORTAB 1010 MG PO ×2 (20:14→20:24)
[2022-12-16 20:15] VITALS: BP 115/77
[2022-12-16 20:34] VITALS: BP 115/77
== END 2022-12-16 20:34 | disposition home or self-care (01) | DRG 999 ==
LOC: ED 16:27
PROVIDERS: Family Medicine
DX: R07.9 Chest pain, unspecified (principal); S22.089A Unspecified fracture of T11-T12 vertebra, initial encounter for closed fracture; E11.9 Type 2 diabetes mellitus without complications; E03.9 Hypothyroidism, unspecified; F17.200 Nicotine dependence, unspecified, uncomplicated; W19.XXXA Unspecified fall, initial encounter

== ENCOUNTER 2022-12-21 04:31 | Emergency (ER) | payer SELFPAY ==
[~2022-12-21] VITALS: Ht 177.8 cm; Wt 90.0 kg
[2022-12-21] VITALS (7 sets, daily range): BP systolic 101–125; BP diastolic 40–71
[2022-12-21] MEDS ORDERED: OXYBUTYNIN CHLO10 MG PO (05:22)
[2022-12-21] MEDS ORDERED: METAXALONE800 M1 PO (05:25)
[2022-12-21] MEDS ORDERED: CYMBALTA60 MG PO (05:25)
[2022-12-21] MEDS ORDERED: NEURONTIN600 MG PO (05:26)
[2022-12-21] MEDS ORDERED: ONDANSETRON4 MG PO (05:27)
[2022-12-21] MEDS ORDERED: MAXALT10 MG PO (05:28)
[2022-12-21] MEDS ORDERED: ATORVASTATIN CA10 MG PO (05:28)
[2022-12-21] MEDS ORDERED: LORTAB 1010 MG PO (05:29)
[2022-12-22] MEDS ORDERED: MIRALAX17 GM PO (19:17)
== END 2022-12-21 07:00 | disposition home or self-care (01) | DRG 204 ==
LOC: ED 04:31
DX: R07.81 Pleurodynia (principal); R53.1 Weakness; S22.089D Unspecified fracture of T11-T12 vertebra, subsequent encounter for fracture with routine healing; E11.9 Type 2 diabetes mellitus without complications; E03.9 Hypothyroidism, unspecified; F17.200 Nicotine dependence, unspecified, uncomplicated; Z86.73 Personal history of transient ischemic attack (TIA), and cerebral infarction without residual deficits; Z91.81 History of falling; W19.XXXD Unspecified fall, subsequent encounter

== ENCOUNTER 2022-12-22 14:13 | Emergency (ER) | payer SELFPAY ==
[2022-12-22] VITALS (8 sets, daily range): BP systolic 113–118; BP diastolic 71–94
[~2022-12-22] VITALS: Ht 177.8 cm; Wt 95.0 kg
[~2022-12-22 14:13] MED LIST changes: +ATORVASTATIN CA10 MG PO; +NEURONTIN600 MG PO; +ONDANSETRON4 MG PO; +OXYBUTYNIN CHLO10 MG PO
[2022-12-22] MEDS ORDERED: MIRALAX17 GM PO (19:17)
== END 2022-12-22 19:22 | disposition home or self-care (01) | DRG 552 ==
LOC: ED 14:13
DX: M53.3 Sacrococcygeal disorders, not elsewhere classified (principal); K59.03 Drug induced constipation; T50.995A Adverse effect of other drugs, medicaments and biological substances, initial encounter; E11.9 Type 2 diabetes mellitus without complications; E03.9 Hypothyroidism, unspecified; F17.200 Nicotine dependence, unspecified, uncomplicated; Z91.199 Patient's noncompliance with other medical treatment and regimen due to unspecified reason; Z86.73 Personal history of transient ischemic attack (TIA), and cerebral infarction without residual deficits; Z91.81 History of falling

== ENCOUNTER 2023-01-05 15:51 | Emergency (ER) | payer SELFPAY ==
[2023-01-05] VITALS (8 sets, daily range): BP systolic 102–124; BP diastolic 63–78
[~2023-01-05] VITALS: Ht 177.8 cm; Wt 95.2 kg
[~2023-01-05 15:51] MED LIST changes: +MIRALAX17 GM PO
[2023-01-05] MEDS ORDERED: HYDROCO/APAP1 TA9 PO (18:07)
== END 2023-01-05 18:40 | disposition home or self-care (01) | DRG 552 ==
LOC: ED 15:51
DX: M54.50 Low back pain, unspecified (principal); E11.9 Type 2 diabetes mellitus without complications; E03.9 Hypothyroidism, unspecified; F17.200 Nicotine dependence, unspecified, uncomplicated; Z86.73 Personal history of transient ischemic attack (TIA), and cerebral infarction without residual deficits

== ENCOUNTER 2023-01-14 23:39 | Emergency (ER) | payer SELFPAY ==
[~2023-01-14] VITALS: Ht 177.8 cm; Wt 99.0 kg
[2023-01-14 23:55] VITALS: BP 137/71
[2023-01-15 00:01] VITALS: BP 120/69
[2023-01-15 00:16] VITALS: BP 108/70
[2023-01-15 00:30] VITALS: BP 117/68
[2023-01-15 00:45] VITALS: BP 108/70
[2023-01-15 00:53] VITALS: BP 108/70
== END 2023-01-15 01:04 | disposition home or self-care (01) | DRG 552 ==
LOC: ED 23:39
DX: M54.6 Pain in thoracic spine (principal); M54.50 Low back pain, unspecified; E11.9 Type 2 diabetes mellitus without complications; E03.9 Hypothyroidism, unspecified; F17.200 Nicotine dependence, unspecified, uncomplicated; Z86.73 Personal history of transient ischemic attack (TIA), and cerebral infarction without residual deficits

== ENCOUNTER 2023-02-01 10:06 | Emergency (ER) | payer OTHER ==
[~2023-02-01] VITALS: Ht 177.8 cm; Wt 90.0 kg
[2023-02-01] VITALS (8 sets, daily range): BP systolic 105–125; BP diastolic 66–86
[2023-02-01] MEDS ORDERED: METHOCARBAMOL500 MG PO (12:26)
[2023-02-01] MEDS ORDERED: MEDDOSEPAK PO (12:26)
[2023-02-02] MEDS ORDERED: METHOCARBAMOL500 MG PO (00:12)
== END 2023-02-01 13:01 | disposition home or self-care (01) | DRG 552 ==
LOC: ED 10:06
DX: M54.50 Low back pain, unspecified (principal); G89.29 Other chronic pain; E11.9 Type 2 diabetes mellitus without complications; E03.9 Hypothyroidism, unspecified; I10 Essential (primary) hypertension; F41.9 Anxiety disorder, unspecified; F17.200 Nicotine dependence, unspecified, uncomplicated; Z86.73 Personal history of transient ischemic attack (TIA), and cerebral infarction without residual deficits; Z91.81 History of falling; M54.9 Dorsalgia, unspecified
CPT/HCPCS: J1100; J2060

== ENCOUNTER 2023-02-01 22:10 | Emergency (ER) | payer OTHER ==
[~2023-02-01] VITALS: Ht 177.8 cm; Wt 90.0 kg
[2023-02-02] MEDS ORDERED: METHOCARBAMOL500 MG PO (00:12)
[2023-02-02 00:40] VITALS: BP 130/89
== END 2023-02-02 00:40 | disposition home or self-care (01) | DRG 552 ==
LOC: ED 22:10
DX: M54.50 Low back pain, unspecified (principal); E11.9 Type 2 diabetes mellitus without complications; E03.9 Hypothyroidism, unspecified; F17.200 Nicotine dependence, unspecified, uncomplicated; Z86.73 Personal history of transient ischemic attack (TIA), and cerebral infarction without residual deficits; Z91.81 History of falling
CPT/HCPCS: J1100; J2060

== ENCOUNTER 2023-02-16 03:23 | Emergency (ER) | payer OTHER ==
[~2023-02-16] VITALS: Ht 177.8 cm; Wt 100.0 kg
[2023-02-16 03:46] VITALS: BP 106/65
[2023-02-16 04:00] VITALS: BP 118/80
[2023-02-16 04:15] VITALS: BP 101/72
[2023-02-16 04:38] VITALS: BP 101/72
== END 2023-02-16 04:21 | disposition home or self-care (01) | DRG 605 ==
LOC: ED 03:23
DX: S40.011A Contusion of right shoulder, initial encounter (principal); S60.221A Contusion of right hand, initial encounter; E11.9 Type 2 diabetes mellitus without complications; E03.9 Hypothyroidism, unspecified; M54.9 Dorsalgia, unspecified; M54.2 Cervicalgia; G89.29 Other chronic pain; F17.200 Nicotine dependence, unspecified, uncomplicated; W18.11XA Fall from or off toilet without subsequent striking against object, initial encounter; Z86.73 Personal history of transient ischemic attack (TIA), and cerebral infarction without residual deficits

== ENCOUNTER 2023-07-04 23:42 | Emergency (ER) | payer OTHER ==
[~2023-07-04 23:42] MED LIST changes: +HYDROCODONE POLISTIR PO; +METAMUCIL58.6 % PO; +PREDNISONE20 MG PO; +PROVENTIL HFA108 MCG PO; +VENTOLIN HFA108 MCG IN
== END 2023-07-05 00:25 | disposition left against medical advice (07) | DRG 951 ==
LOC: ED 23:42 → LWOBS 07-05 00:25
DX: Z53.21 Procedure and treatment not carried out due to patient leaving prior to being seen by health care provider (principal)

== ENCOUNTER 2023-07-07 04:14 | Emergency (ER) | payer OTHER | END 2023-07-07 04:18 | disposition left against medical advice (07) | DRG 951 | LOC: ED 04:14 → LWOBS 04:18 | DX: Z53.21 Procedure and treatment not carried out due to patient leaving prior to being seen by health care provider (principal) ==

== ENCOUNTER 2023-07-10 07:10 | Emergency (ER) | payer OTHER ==
[~2023-07-10] VITALS: Ht 177.8 cm; Wt 86.0 kg
[2023-07-10] VITALS (7 sets, daily range): BP systolic 110–127; BP diastolic 65–77
[2023-07-10] MEDS ORDERED: AMOX/K CLAV875 M1 PO (08:28)
== END 2023-07-10 10:10 | disposition home or self-care (01) | DRG 159 ==
LOC: ED 07:10
DX: K08.89 Other specified disorders of teeth and supporting structures (principal); M25.572 Pain in left ankle and joints of left foot; G43.909 Migraine, unspecified, not intractable, without status migrainosus; E03.9 Hypothyroidism, unspecified; F17.200 Nicotine dependence, unspecified, uncomplicated; Z86.73 Personal history of transient ischemic attack (TIA), and cerebral infarction without residual deficits

== ENCOUNTER 2023-08-01 15:29 | Emergency (ER) | payer OTHER ==
[~2023-08-01] VITALS: Ht 177.8 cm; Wt 88.0 kg
[2023-08-01 15:53] VITALS: BP 141/88
[2023-08-01 16:00] VITALS: BP 146/80
[2023-08-01] MEDS ORDERED: PHENAZOPYRIDINE HCL 100 MG/TAB PO ONE (16:05)
[2023-08-01 16:13] LABS: URINE BILIRUBIN - DIPSTICK Negative (NEGATIVE); URINE BLOOD DIPSTICK Negative (NEGATIVE); URINE GLUCOSE - DIPSTICK Negative (NEGATIVE); URINE KETONE Negative (NEGATIVE); URINE LEUK ESTERASE Negative (NEGATIVE); URINE NITRITE - DIPSTICK Negative (Negative); URINE PROTEIN - DIPSTICK Negative (NEG-TRACE); URINE UROBILINOGEN - DIPSTICK 0.2 E.U./dL (0.2)
[2023-08-01 16:14] LABS: URINE COLOR Yellow
[2023-08-01 16:31] VITALS: BP 115/70
[2023-08-01 17:00] VITALS: BP 138/95
[2023-08-01] MEDS ORDERED: PYRIDIUM200 MG PO (19:17)
[2023-08-01 19:19] VITALS: BP 138/95
== END 2023-08-01 19:27 | disposition home or self-care (01) | DRG 696 ==
LOC: ED 15:29
PROVIDERS: Family Medicine
DX: R30.0 Dysuria (principal); G43.909 Migraine, unspecified, not intractable, without status migrainosus; Z76.5 Malingerer [conscious simulation]; E11.9 Type 2 diabetes mellitus without complications; E03.9 Hypothyroidism, unspecified; Z87.442 Personal history of urinary calculi; F17.200 Nicotine dependence, unspecified, uncomplicated

== ENCOUNTER 2023-12-12 09:47 | Emergency (ER) | payer OTHER ==
[~2023-12-12] VITALS: Ht 177.8 cm; Wt 90.0 kg
[2023-12-12] VITALS (10 sets, daily range): BP systolic 130–149; BP diastolic 73–112
[~2023-12-12 09:47] MED LIST changes: +ASPIRIN 81 LOW81 MG PO; +CLEOCIN300 MG PO; +LEVOTHYROXIN88 MC1 PO; +PENICILLN VK500 MG PO; +PERCOCET 5/321 COMBO PO; +PYRIDIUM200 MG PO
[2023-12-12 10:21] LABS: BASO% 0.4 % (0-3); EOS% 2.6 % (0-8); HEMATOCRIT 43.4 % (37.0-47.0); HEMOGLOBIN 13.8 g/dl (12.0-16.0); IMMATURE GRANULOCYTES 0.4 % (0.0-5.0); LYMPH% 30.8 % (15-41); MEAN CELL VOLUME 99.1 fL CALC (80.0-100.0); MEAN CORPUSCULAR HGB 31.5 pG CALC (26.0-32.0); MEAN CORPUSCULAR HGB CONC 31.8 g/dL CAL (32.0-36.0); NEUT# 4.22 thou/uL (2.00-7.15); NEUT% 59.8 % (42-76); RED BLOOD COUNT 4.38 mill/uL (4.20-5.60); RED CELL DISTRI WIDTH 12.9 % (11.5-15.5)
[2023-12-12] MEDS ORDERED: DEXAMETHASONE SOD. PHOSPHATE 10 MG/ML VIAL IV ONE (10:35)
[2023-12-12] MEDS ORDERED: DiphenhydrAMINE HCL 50 MG/ML SDV IV ONE (10:35)
[2023-12-12] MEDS ORDERED: SODIUM CHLORIDE 0.9% 1,000 ML IV ONE (10:35)
[2023-12-12] MEDS ORDERED: METOCLOPRAMIDE HCL 10 MG/2 ML SDV IV ONE (10:35)
[2023-12-12 10:40] LABS: ALBUMIN 4.7 g/dL (3.2-5.0); BILIRUBIN, TOTAL 0.4 mg/dL (0.02-1.3); CREATININE 0.9 mg/dL (0.5-1.0); POTASSIUM 4.4 mmol/l (3.5-5.1); TOTAL PROTEIN 8.1 g/dL (6.3-8.2)
== END 2023-12-12 12:39 | disposition home or self-care (01) | DRG 103 ==
LOC: ED 09:47
PROVIDERS: Family Medicine
DX: G43.909 Migraine, unspecified, not intractable, without status migrainosus (principal); F41.9 Anxiety disorder, unspecified; F31.9 Bipolar disorder, unspecified; F17.210 Nicotine dependence, cigarettes, uncomplicated; Z86.73 Personal history of transient ischemic attack (TIA), and cerebral infarction without residual deficits

== ENCOUNTER 2023-12-13 03:00 | Emergency (ER) | payer OTHER ==
[~2023-12-13] VITALS: Ht 177.8 cm; Wt 86.0 kg
[2023-12-13 03:11] VITALS: BP 127/78
[2023-12-13 03:30] VITALS: BP 131/97
[2023-12-13] MEDS ORDERED: SODIUM CHLORIDE 0.9% 1,000 ML IV ONE (03:30)
[2023-12-13] MEDS ORDERED: Acetaminophen 300 MG/Codeine 30 MG/COMBO PO ONE ×2 (03:30→03:55)
[2023-12-13] MEDS ORDERED: DEXAMETHASONE SOD. PHOSPHATE 10 MG/ML VIAL IV ONE (03:30)
[2023-12-13] MEDS ORDERED: HALOPERIDOL LACTATE 5 MG/ML SDV IV ONE (03:40)
[2023-12-13 04:01] VITALS: BP 136/81
[2023-12-13 04:31] VITALS: BP 118/78
[2023-12-13 05:05] VITALS: BP 118/72
== END 2023-12-13 05:05 | disposition home or self-care (01) | DRG 605 ==
LOC: ED 03:00
DX: S70.02XA Contusion of left hip, initial encounter (principal); G43.109 Migraine with aura, not intractable, without status migrainosus; M16.0 Bilateral primary osteoarthritis of hip; F41.9 Anxiety disorder, unspecified; F31.9 Bipolar disorder, unspecified; E03.9 Hypothyroidism, unspecified; F17.200 Nicotine dependence, unspecified, uncomplicated; W18.11XA Fall from or off toilet without subsequent striking against object, initial encounter; Y92.002 Bathroom of unspecified non-institutional (private) residence as the place of occurrence of the external cause; Z86.73 Personal history of transient ischemic attack (TIA), and cerebral infarction without residual deficits

== ENCOUNTER 2024-01-04 06:36 | Emergency (ER) | payer OTHER ==
[~2024-01-04] VITALS: Ht 175.3 cm; Wt 90.0 kg
[2024-01-04 07:14] VITALS: BP 110/62
[2024-01-04] MEDS ORDERED: METOCLOPRAMIDE HCL 10 MG/2 ML SDV IV ONE (07:15)
[2024-01-04] MEDS ORDERED: ACETAMINOPHEN 500 MG TAB PO ONE (07:15)
[2024-01-04] MEDS ORDERED: SODIUM CHLORIDE 0.9% 1,000 ML IV ONE (07:15)
[2024-01-04] MEDS ORDERED: DiphenhydrAMINE HCL 50 MG/ML SDV IV ONE (07:15)
[2024-01-04] MEDS ORDERED: DEXAMETHASONE SOD. PHOSPHATE 10 MG/ML VIAL IV ONE (07:15)
[2024-01-04 07:30] VITALS: BP 117/97
[2024-01-04 08:00] VITALS: BP 127/77
[2024-01-04 08:29] VITALS: BP 127/77
== END 2024-01-05 18:06 | disposition home or self-care (01) | DRG 556 ==
LOC: ED 06:36
DX: M25.572 Pain in left ankle and joints of left foot (principal); M25.562 Pain in left knee; F41.9 Anxiety disorder, unspecified; F31.9 Bipolar disorder, unspecified; F17.200 Nicotine dependence, unspecified, uncomplicated; Z86.73 Personal history of transient ischemic attack (TIA), and cerebral infarction without residual deficits

== ENCOUNTER 2024-01-24 15:12 | Emergency (ER) | payer OTHER ==
[~2024-01-24] VITALS: Ht 175.3 cm; Wt 104.3 kg
== END 2024-01-24 16:09 | disposition home or self-care (01) | DRG 556 ==
LOC: ED 15:12
DX: M25.562 Pain in left knee (principal); F41.9 Anxiety disorder, unspecified; F31.9 Bipolar disorder, unspecified; E03.9 Hypothyroidism, unspecified; Z86.73 Personal history of transient ischemic attack (TIA), and cerebral infarction without residual deficits; F17.200 Nicotine dependence, unspecified, uncomplicated

== ENCOUNTER 2024-03-18 14:22 | Emergency (ER) | payer OTHER ==
[2024-03-18] VITALS (9 sets, daily range): BP systolic 129–155; BP diastolic 69–103
[~2024-03-18] VITALS: Ht 175.3 cm; Wt 99.7 kg
[2024-03-18] MEDS ORDERED: DiphenhydrAMINE HCL 50 MG/ML SDV IV ONE (14:45)
[2024-03-18] MEDS ORDERED: METOCLOPRAMIDE HCL 10 MG/2 ML SDV IV ONE (14:45)
[2024-03-18] MEDS ORDERED: SUMAtriptan SUCCINATE 6 MG/0.5 ML SDV SC ONE (14:45)
[2024-03-18] MEDS ORDERED: DEXAMETHASONE SOD. PHOSPHATE 10 MG/ML VIAL IV ONE (14:50)
[2024-03-18] MEDS ORDERED: SODIUM CHLORIDE 0.9% 1,000 ML IV ONE (14:50)
[2024-03-18 15:26] LABS: BASO% 0.4 % (0-3); HEMATOCRIT 43.7 % (37.0-47.0); HEMOGLOBIN 13.8 g/dl (12.0-16.0); IMMATURE GRANULOCYTES 0.3 % (0.0-5.0); LYMPH% 29.5 % (15-41); MEAN CELL VOLUME 97.5 fL CALC (80.0-100.0); MEAN CORPUSCULAR HGB 30.8 pG CALC (26.0-32.0); MEAN CORPUSCULAR HGB CONC 31.6 g/dL CAL (32.0-36.0); MONO% 5.7 % (2-13); NEUT# 4.25 thou/uL (2.00-7.15); NEUT% 62.1 % (42-76); RED BLOOD COUNT 4.48 mill/uL (4.20-5.60)
[2024-03-18 15:41] LABS: ALBUMIN 4.5 g/dL (3.2-5.0); BILIRUBIN, TOTAL 0.3 mg/dL (0.02-1.3); CREATININE 0.8 mg/dL (0.5-1.0); POTASSIUM 4.8 mmol/l (3.5-5.1); TOTAL PROTEIN 7.7 g/dL (6.3-8.2)
[2024-03-18] MEDS ORDERED: ONDANSETRON HCl 4 MG/2 ML SDV IV ONE (16:35)
[2024-03-18] MEDS ORDERED: MORPHINE SULFATE 4 MG/ML VIAL IV ONE (16:35)
== END 2024-03-18 16:57 | disposition home or self-care (01) | DRG 103 ==
LOC: ED 14:22
PROVIDERS: Family Medicine
DX: G43.909 Migraine, unspecified, not intractable, without status migrainosus (principal); F41.9 Anxiety disorder, unspecified; F31.9 Bipolar disorder, unspecified; F17.210 Nicotine dependence, cigarettes, uncomplicated; Z86.73 Personal history of transient ischemic attack (TIA), and cerebral infarction without residual deficits

== ENCOUNTER 2024-05-01 16:41 | Emergency (ER) | payer OTHER ==
[~2024-05-01] VITALS: Ht 175.3 cm; Wt 95.0 kg
[2024-05-01] MEDS ORDERED: METOCLOPRAMIDE HCL 10 MG/2 ML SDV IV ONE (17:15)
[2024-05-01] MEDS ORDERED: DEXAMETHASONE SOD. PHOSPHATE 10 MG/ML VIAL IV ONE (17:15)
[2024-05-01] MEDS ORDERED: DiphenhydrAMINE HCL 50 MG/ML SDV IV ONE (17:15)
[2024-05-01 17:58] LABS: BASO% 0.4 % (0-3); HEMATOCRIT 42.1 % (37.0-47.0); HEMOGLOBIN 13.7 g/dl (12.0-16.0); IMMATURE GRANULOCYTES 0.3 % (0.0-5.0); LYMPH% 21.1 % (15-41); MEAN CELL VOLUME 96.1 fL CALC (80.0-100.0); MEAN CORPUSCULAR HGB 31.3 pG CALC (26.0-32.0); MEAN CORPUSCULAR HGB CONC 32.5 g/dL CAL (32.0-36.0); MONO% 7.1 % (2-13); NEUT# 7.09 thou/uL (2.00-7.15); NEUT% 70.1 % (42-76); RED BLOOD COUNT 4.38 mill/uL (4.20-5.60); RED CELL DISTRI WIDTH 13.1 % (11.5-15.5)
[2024-05-01 18:10] LABS: ALBUMIN 4.6 g/dL (3.2-5.0); CREATININE 0.9 mg/dL (0.5-1.0); POTASSIUM 4.3 mmol/l (3.5-5.1)
[2024-05-01 18:11] LABS: BILIRUBIN, TOTAL 0.5 mg/dL (0.02-1.3)
[2024-05-01] MEDS ORDERED: CEPHALEXIN500 M1 PO (18:15)
[2024-05-01] MEDS ORDERED: BACTRIM DS1 TAB PO (18:15)
[2024-05-01 19:10] VITALS: BP 158/98
== END 2024-05-01 19:20 | disposition home or self-care (01) | DRG 103 ==
LOC: ED 16:41
PROVIDERS: Family Medicine
DX: R51.9 Headache, unspecified (principal); L03.311 Cellulitis of abdominal wall; F41.9 Anxiety disorder, unspecified; F31.9 Bipolar disorder, unspecified; F17.200 Nicotine dependence, unspecified, uncomplicated; Z86.73 Personal history of transient ischemic attack (TIA), and cerebral infarction without residual deficits

== ENCOUNTER 2024-05-31 19:16 | Emergency (ER) | payer OTHER ==
[~2024-05-31] VITALS: Ht 175.3 cm; Wt 95.3 kg
[~2024-05-31 19:16] MED LIST changes: +BACTRIM DS1 TAB PO
[2024-05-31] MEDS ORDERED: DiphenhydrAMINE HCL 50 MG/ML SDV IV ONE (20:05)
[2024-05-31] MEDS ORDERED: SODIUM CHLORIDE 0.9% 1,000 ML IV ONE (20:05)
[2024-05-31] MEDS ORDERED: DEXAMETHASONE SOD. PHOSPHATE 10 MG/ML VIAL IV ONE (20:05)
[2024-05-31] MEDS ORDERED: METOCLOPRAMIDE HCL 10 MG/2 ML SDV IV ONE (20:05)
[2024-05-31 20:30] LABS: BASO% 0.3 % (0-3); HEMATOCRIT 46.1 % (37.0-47.0); HEMOGLOBIN 14.4 g/dl (12.0-16.0); IMMATURE GRANULOCYTES 0.3 % (0.0-5.0); LYMPH% 18.8 % (15-41); MEAN CELL VOLUME 98.7 fL CALC (80.0-100.0); MEAN CORPUSCULAR HGB 30.8 pG CALC (26.0-32.0); MEAN CORPUSCULAR HGB CONC 31.2 g/dL CAL (32.0-36.0); MONO% 7.3 % (2-13); NEUT# 8.31 thou/uL (2.00-7.15); NEUT% 72.3 % (42-76); RED BLOOD COUNT 4.67 mill/uL (4.20-5.60); RED CELL DISTRI WIDTH 12.9 % (11.5-15.5)
[2024-05-31 20:31] LABS: URINE BILIRUBIN - DIPSTICK Negative (NEGATIVE); URINE BLOOD DIPSTICK Negative (NEGATIVE); URINE GLUCOSE - DIPSTICK Negative (NEGATIVE); URINE KETONE Trace mg/dL (NEGATIVE); URINE PROTEIN - DIPSTICK 30 mg/dL (NEG-TRACE); URINE SPECIFIC GRAVITY 1.025; URINE UROBILINOGEN - DIPSTICK 0.2 E.U./dL (0.2)
[2024-05-31 20:33] LABS: URINE COLOR Yellow; URINE LEUK ESTERASE Small (NEGATIVE); URINE NITRITE - DIPSTICK Positive (Negative)
[2024-05-31 20:37] LABS: URINE BACTERIA MANY hpf; URINE RBC 0-2 RBC/hpf (0-5)
[2024-05-31 20:38] LABS: URINE HYALINE CAST FEW lpf (NONE-RARE); URINE SQUAMOUS EPITHELIAL CELL FEW EPI/hpf (0-FEW)
[2024-05-31 20:38] LABS: ALBUMIN 4.7 g/dL (3.2-5.0); BILIRUBIN, TOTAL 0.5 mg/dL (0.02-1.3); CREATININE 0.9 mg/dL (0.5-1.0); POTASSIUM 4.6 mmol/l (3.5-5.1); TOTAL PROTEIN 8.2 g/dL (6.3-8.2)
[2024-05-31] MEDS ORDERED: BACTRIM DS1 TAB PO (21:03)
[2024-05-31] MEDS ORDERED: SULFAMETHOXAZOLE W/TRIMETHOPRI 1 COMBO TAB PO ONE (21:05)
[2024-05-31 22:01] VITALS: BP 138/86
[2024-06-02] MEDS ORDERED: LEVOFLOXACIN750 MG PO (09:16)
== END 2024-05-31 22:12 | disposition home or self-care (01) | DRG 103 ==
LOC: ED 19:16
PROVIDERS: Family Medicine
DX: G43.909 Migraine, unspecified, not intractable, without status migrainosus (principal); N12 Tubulo-interstitial nephritis, not specified as acute or chronic; F17.200 Nicotine dependence, unspecified, uncomplicated
CPT/HCPCS: J1100; J1200; J2765

== ENCOUNTER 2024-06-09 19:23 | Emergency (ER) | payer OTHER ==
[~2024-06-09 19:23] MED LIST changes: +LEVOFLOXACIN750 MG PO
[2024-06-09] MEDS ORDERED: LISINOPRIL2.5 MG PO (20:39)
[2024-06-09] MEDS ORDERED: LEVOFLOXACIN750 MG PO (22:18)
== END 2024-06-09 19:38 | disposition left against medical advice (07) | DRG 951 ==
LOC: ED 19:23 → LWOBS 19:38
DX: Z53.21 Procedure and treatment not carried out due to patient leaving prior to being seen by health care provider (principal)

== ENCOUNTER 2024-06-09 20:20 | Emergency (ER) | payer OTHER ==
[~2024-06-09] VITALS: Ht 175.3 cm; Wt 90.0 kg
[2024-06-09 20:29] VITALS: BP 160/110
[2024-06-09 20:30] VITALS: BP 170/108
[2024-06-09] MEDS ORDERED: NITROFURANTOIN 100 MG/CAP PO ONE (20:30)
[2024-06-09] MEDS ORDERED: LISINOPRIL2.5 MG PO (20:39)
[2024-06-09 21:08] LABS: URINE BILIRUBIN - DIPSTICK Negative (NEGATIVE); URINE BLOOD DIPSTICK Negative (NEGATIVE); URINE COLOR Yellow; URINE GLUCOSE - DIPSTICK Negative (NEGATIVE); URINE KETONE Negative (NEGATIVE); URINE LEUK ESTERASE Negative (NEGATIVE); URINE NITRITE - DIPSTICK Negative (Negative); URINE PH 5.5 (4.5-8.0); URINE PROTEIN - DIPSTICK Negative (NEG-TRACE); URINE SPECIFIC GRAVITY 1.015; URINE UROBILINOGEN - DIPSTICK 0.2 E.U./dL (0.2)
[2024-06-09 21:26] LABS: BASO% 0.1 % (0-3); EOS% 0.1 % (0-8); HEMATOCRIT 46.2 % (37.0-47.0); IMMATURE GRANULOCYTES 0.4 % (0.0-5.0); LYMPH% 16.3 % (15-41); MEAN CELL VOLUME 94.5 fL CALC (80.0-100.0); MEAN CORPUSCULAR HGB 30.7 pG CALC (26.0-32.0); MEAN CORPUSCULAR HGB CONC 32.5 g/dL CAL (32.0-36.0); MONO% 8.1 % (2-13); NEUT# 7.57 thou/uL (2.00-7.15); RED BLOOD COUNT 4.89 mill/uL (4.20-5.60)
[2024-06-09 21:37] LABS: ALBUMIN 4.9 g/dL (3.2-5.0); BILIRUBIN, TOTAL 0.6 mg/dL (0.02-1.3); CREATININE 0.8 mg/dL (0.5-1.0); POTASSIUM 3.8 mmol/l (3.5-5.1); TOTAL PROTEIN 8.7 g/dL (6.3-8.2)
[2024-06-09] MEDS ORDERED: LEVOFLOXACIN750 MG PO (22:18)
[2024-06-09] MEDS ORDERED: levoFLOXacin 500 MG TAB PO ONE (22:20)
[2024-06-09 22:27] VITALS: BP 158/84
== END 2024-06-09 22:27 | disposition home or self-care (01) | DRG 696 ==
LOC: ED 20:20
PROVIDERS: Family Medicine
DX: R30.0 Dysuria (principal); M54.9 Dorsalgia, unspecified

== ENCOUNTER 2024-09-03 17:33 | Emergency (ER) | payer OTHER ==
[~2024-09-03] VITALS: Ht 175.3 cm; Wt 82.0 kg
[~2024-09-03 17:33] MED LIST changes: +LISINOPRIL2.5 MG PO
[2024-09-03 18:01] VITALS: BP 119/79
[2024-09-03] MEDS ORDERED: HYDROmorphone HCL 2 MG/AMP IM ONE (18:10)
[2024-09-03] MEDS ORDERED: ONDANSETRON 4 MG/TAB ODT PO ONE (18:10)
[2024-09-03 18:15] VITALS: BP 111/93
[2024-09-03] MEDS ORDERED: LORTAB 1010 MG PO (18:22)
[2024-09-03 18:31] VITALS: BP 110/79
== END 2024-09-03 18:39 | disposition home or self-care (01) | DRG 556 ==
LOC: ED 17:33
DX: M79.672 Pain in left foot (principal); E03.9 Hypothyroidism, unspecified; F41.9 Anxiety disorder, unspecified; F31.9 Bipolar disorder, unspecified; F17.200 Nicotine dependence, unspecified, uncomplicated; Z86.73 Personal history of transient ischemic attack (TIA), and cerebral infarction without residual deficits; Z98.890 Other specified postprocedural states
CPT/HCPCS: J1171

== ENCOUNTER 2024-09-05 11:13 | Emergency (ER) | payer OTHER ==
[2024-09-05] VITALS (7 sets, daily range): BP systolic 112–137; BP diastolic 72–86
[~2024-09-05] VITALS: Ht 175.3 cm; Wt 49.0 kg
[2024-09-05] MEDS ORDERED: ONDANSETRON 4 MG/TAB ODT PO ONE (11:20)
[2024-09-05] MEDS ORDERED: MORPHINE SULFATE 4 MG/ML VIAL IM ONE (11:20)
[2024-09-05] MEDS ORDERED: DiphenhydrAMINE HCL 25 MG CPLT PO ONE (11:20)
== END 2024-09-05 12:59 | disposition home or self-care (01) | DRG 605 ==
LOC: ED 11:13
DX: S50.02XA Contusion of left elbow, initial encounter (principal); S40.012A Contusion of left shoulder, initial encounter; F41.9 Anxiety disorder, unspecified; F31.9 Bipolar disorder, unspecified; E03.9 Hypothyroidism, unspecified; Y92.009 Unspecified place in unspecified non-institutional (private) residence as the place of occurrence of the external cause; W18.30XA Fall on same level, unspecified, initial encounter; Z86.73 Personal history of transient ischemic attack (TIA), and cerebral infarction without residual deficits